=== PATIENT | female | born 1950 | race African-American/Black ===

== ENCOUNTER → 2016-12-10 | Outpatient (CLI) | payer OTHER ==
[~2016-12-10] MED LIST: ATEN25TA PO; HYDR-3307 PO; IBUP800T PO; METH750T2 PO; MORP15TA3 PO; MORP20CA17 PO
[2016-12-10 14:34] LABS: ASPARTATE AMINO TRANSFERASE 33 U/L (15-37); BLOOD UREA NITROGEN 15 mg/dL (7-18)
== END | disposition home or self-care (01) ==
LOC: STAR 13:01
PROVIDERS: ATTEND Neurological Surgery
DX: Z01.818 Encounter for other preprocedural examination (principal); R94.31 Abnormal electrocardiogram [ECG] [EKG]; M50.00 Cervical disc disorder with myelopathy, unspecified cervical region
CPT/HCPCS: 36415; 71020; 80053; 85025; 85610; 85730; 93005

== ENCOUNTER 2016-12-24 08:14 | Inpatient (IN) | payer OTHER ==
[~2016-12-24] VITALS: Ht 170.2 cm; Wt 106.0 kg
[~2016-12-24 08:14] MED LIST changes: +BACITRACIN 50,000 UNIT ONE; +BUPIVACAINE/PF 0.5% ONE; +EPINEPHRINE 1 MG/ML, 1ML ONE; +THROMBIN 20,000 UNIT VIAL TP ONE
[2016-12-24] MEDS ORDERED: LACTATED RINGERS 1,000 ML IV SCH (09:08)
[2016-12-24] MEDS ORDERED: FENTANYL PF 250 MCG/5ML ONE (09:18)
[2016-12-24] MEDS ORDERED: KETAMINE 10 MG/ML, 20ML ONE (09:18)
[2016-12-24] MEDS ORDERED: MIDAZOLAM 1 MG/ML, 2ML ONE (09:19)
[2016-12-24] MEDS ORDERED: REMIFENTANIL 2 MG ONE (09:19)
[2016-12-24] MEDS ORDERED: LIDOCAINE 1%, 2ML SQ PRN (09:30)
[2016-12-24] MEDS ORDERED: DEXAMETHASONE 4 MG/ML, 1ML ONE (10:21)
[2016-12-24] MEDS ORDERED: PROPOFOL 10 MG/ML, 50ML ONE (10:21)
[2016-12-24] MEDS ORDERED: SUCCINYLCHOLINE 20 MG/ML, 10ML ONE (10:21)
[2016-12-24] MEDS ORDERED: LABETALOL 5MG/ML, 20ML ONE (10:21)
[2016-12-24] MEDS ORDERED: CEFAZOLIN 1,000 MG ONE (10:21)
[2016-12-24] MEDS ORDERED: ONDANSETRON 2MG/ML, 2ML ONE (10:21)
[2016-12-24] MEDS ORDERED: ROCURONIUM 10 MG/ML ONE (10:21)
[2016-12-24] MEDS ORDERED: PROPOFOL 10 MG/ML, 20ML ONE (10:21)
[2016-12-24] MEDS ORDERED: OXYcodone 5 MG/5 ML ORAL.SOL UDC PO PRN (11:30)
[2016-12-24] MEDS ORDERED: PROMETHAZINE 25 MG/ML, 1ML IV PRN (11:30)
[2016-12-24] MEDS ORDERED: ACETAMINOPHEN 325 MG TABLET PO PRN (11:30)
[2016-12-24] MEDS ORDERED: FENTANYL PF 100 MCG/2ML IV PRN (11:30)
[2016-12-24] MEDS ORDERED: LABETALOL 5MG/ML, 20ML IV PRN (11:30)
[2016-12-24] MEDS ORDERED: MEPERIDINE/PF 25MG/0.5ML IVPush PRN (11:30)
[2016-12-24] MEDS ORDERED: hydrALAzine 20 MG/ML, 1ML IV PRN (11:30)
[2016-12-24] MEDS ORDERED: NITROGLYCERIN 0.4 MG BOTTLE (25 TABS) SL ONE (12:00)
[2016-12-24] MEDS ORDERED: ACETAMINOPHEN 650 MG/20.3 ML UDC ONE (13:17)
[2016-12-24] MEDS ORDERED: HYDROmorphone 1 MG/ML, 1ML ONE (13:17)
[2016-12-24] MEDS ORDERED: OXYcodone 5 MG/5 ML ORAL.SOL UDC ONE (13:17)
[2016-12-24] MEDS: HYDROmorphone 1 MG/ML, 1ML IV PRN ×2 (13:21→13:43)
[2016-12-24] MEDS ORDERED: BISACODYL 10 MG SUPP PR PRN (15:00)
[2016-12-24] MEDS ORDERED: DIAZEPAM 5 MG/ML, 2ML IV PRN (15:00)
[2016-12-24] MEDS ORDERED: ONDANSETRON 2MG/ML, 2ML IV PRN (15:00)
[2016-12-24] MEDS ORDERED: MAGNESIUM HYDROXIDE 8%, 30ML UDC PO PRN (15:00)
[2016-12-24] MEDS ORDERED: DIPHENHYDRAMINE 50 MG CAPSULE PO PRN (15:00)
[2016-12-24] MEDS ORDERED: DIPHENHYDRAMINE 50 MG/ML, 1ML IVPush PRN (15:00)
[2016-12-24] MEDS ORDERED: DIAZEPAM 5 MG TABLET PO PRN (15:00)
[2016-12-24] MEDS ORDERED: OXYcodone IR 5MG TABLET PO PRN (15:00)
[2016-12-24] MEDS ORDERED: METHOCARBAMOL 1,000 MG in DEXTROSE 5% 100 ML IV ONE (15:00)
[2016-12-24] MEDS ORDERED: HYDROcodone/APAP 5/325 TABLET PO PRN (15:00)
[2016-12-24] MEDS ORDERED: DIPHENHYDRAMINE 50 MG/ML, 1ML IM PRN (15:00)
[2016-12-24] MEDS ORDERED: PROMETHAZINE 25 MG/ML, 1ML IM PRN (15:00)
[2016-12-24] MEDS: morphine SULFATE 10 MG/ML, 1ML IV PRN ×3 (15:11→21:01)
[2016-12-24] MEDS: NS + 20MEQ KCL 1,000 ML IV SCH (15:11)
[2016-12-24 15:15] VITALS: BP 142/75
[2016-12-24] MEDS: DEXAMETHASONE 4 MG/ML, 1ML IV SCH ×2 (15:29→21:00)
[2016-12-24] MEDS: NITROGLYCERIN 0.4 MG BOTTLE (25 TABS) SL PRN ×2 (18:15→18:22)
[2016-12-24 18:43] LABS: ASPARTATE AMINO TRANSFERASE 34 U/L (15-37); BLOOD UREA NITROGEN 10 mg/dL (7-18)
[2016-12-24] MEDS: CEFAZOLIN PMX 2GM/50ML 50 ML IVPB SCH (18:47)
[2016-12-24 18:52] LABS: IS PT STATUS REG ER OR PRE ER? NO
[2016-12-24 20:56] VITALS: BP 162/84
[2016-12-24] MEDS: ATENOLOL 25 MG TABLET PO SCH (21:00)
[2016-12-24] MEDS ORDERED: ZOLPIDEM 5MG TABLET PO PRN (21:00)
[2016-12-25 00:49] LABS: IS PT STATUS REG ER OR PRE ER? NO
[2016-12-25] MEDS: DEXAMETHASONE 4 MG/ML, 1ML IV SCH ×2 (01:03→04:38)
[2016-12-25] MEDS: METHOCARBAMOL 750 MG in DEXTROSE 5% 100 ML IV SCH ×3 (01:03→18:24)
[2016-12-25] MEDS: HYDROcodone/APAP 10/325 MG TABLET PO PRN ×3 (01:08→12:51)
[2016-12-25 01:15] VITALS: BP 127/81
[2016-12-25] MEDS: CEFAZOLIN PMX 2GM/50ML 50 ML IVPB SCH ×2 (02:40→11:28)
[2016-12-25 06:40] LABS: ASPARTATE AMINO TRANSFERASE 27 U/L (15-37); BLOOD UREA NITROGEN 10 mg/dL (7-18)
[2016-12-25 06:41] LABS: IS PT STATUS REG ER OR PRE ER? NO
[2016-12-25] MEDS: NS + 20MEQ KCL 1,000 ML IV SCH (08:15)
[2016-12-25] MEDS: SENNA/DOCUSATE TABLET PO SCH (08:15)
[2016-12-25 08:51] VITALS: BP 133/82
[2016-12-25 14:55] VITALS: BP 103/67
[2016-12-25 17:58] VITALS: BP 125/76
[2016-12-25] MEDS: OXYcodone/APAP 5/325MG TABLET PO PRN (17:58)
[2016-12-25 20:27] VITALS: BP 123/69
[2016-12-25] MEDS: ATENOLOL 25 MG TABLET PO SCH (20:47)
[2016-12-26] MEDS: METHOCARBAMOL 750 MG in DEXTROSE 5% 100 ML IV SCH ×3 (01:25→16:04)
[2016-12-26] MEDS: NS + 20MEQ KCL 1,000 ML IV SCH ×2 (01:25→21:17)
[2016-12-26 01:36] VITALS: BP 119/73
[2016-12-26] MEDS: OXYcodone/APAP 5/325MG TABLET PO PRN ×2 (01:40→11:36)
[2016-12-26] MEDS: ASPIRIN 81 MG TABLET EC PO SCH (06:00)
[2016-12-26] MEDS ORDERED: OMEPRAZOLE 20 MG CAPSULE.DR PO SCH (07:30)
[2016-12-26] MEDS: SENNA/DOCUSATE TABLET PO SCH (08:16)
[2016-12-26 09:19] VITALS: BP 123/71
[2016-12-26] MEDS: ENOXAPARIN 30 MG/0.3 ML SQ SCH ×2 (09:41→22:57)
[2016-12-26] MEDS ORDERED: CYCLOBENZAPRINE 10 MG TABLET PO PRN (10:00)
[2016-12-26] MEDS ORDERED: methylPREDNISolone*ACETATE* 80 MG/ML IM ONE (13:00)
[2016-12-26] MEDS ORDERED: MORPHINE SULFATE 4 MG/ML, 1ML ONE (15:52)
[2016-12-26] MEDS: morphine SULFATE 10 MG/ML, 1ML IV PRN ×2 (15:56→21:17)
[2016-12-26 17:50] VITALS: BP 174/101
[2016-12-26 17:55] VITALS: BP 172/90
[2016-12-26] MEDS ORDERED: ACETAMINOPHEN 650 MG SUPP PR PRN (18:30)
[2016-12-26] MEDS: hydrALAzine 20 MG/ML, 1ML IV PRN ×2 (18:33→21:18)
[2016-12-26] MEDS: DEXAMETHASONE 4 MG/ML, 1ML IVPush SCH (18:33)
[2016-12-26 19:42] VITALS: BP 172/85
[2016-12-26] MEDS: ATENOLOL 25 MG TABLET PO SCH (21:00)
[2016-12-26] MEDS ORDERED: METHOCARBAMOL 750 MG TABLET PO SCH (23:00)
[2016-12-27] MEDS ORDERED: METHOCARBAMOL 750 MG in DEXTROSE 5% 100 ML IV SCH
[2016-12-27 00:01] VITALS: BP 158/88
[2016-12-27] MEDS: HYDROmorphone 1 MG/ML, 1ML IV PRN ×4 (00:35→14:36)
[2016-12-27] MEDS: DEXAMETHASONE 4 MG/ML, 1ML IVPush SCH ×5 (01:27→22:57)
[2016-12-27 04:15] VITALS: BP 149/81
[2016-12-27] MEDS: ASPIRIN 81 MG TABLET EC PO SCH (05:15)
[2016-12-27 06:34] VITALS: BP 148/81
[2016-12-27] MEDS: PANTOPRAZOLE 40 MG IV IVPush SCH (09:20)
[2016-12-27] MEDS: ENOXAPARIN 30 MG/0.3 ML SQ SCH ×2 (09:21→22:47)
[2016-12-27] MEDS: SENNA/DOCUSATE TABLET PO SCH (09:21)
[2016-12-27 09:25] LABS: ASPARTATE AMINO TRANSFERASE 20 U/L (15-37); BLOOD UREA NITROGEN 10 mg/dL (7-18)
[2016-12-27 13:29] VITALS: BP 137/87
[2016-12-27] MEDS: HYDROcodone/APAP 10/325 MG TABLET PO PRN (15:22)
[2016-12-27] MEDS: NS + 20MEQ KCL 1,000 ML IV SCH ×2 (20:00→22:47)
[2016-12-27 20:04] VITALS: BP 150/85
[2016-12-27] MEDS: ATENOLOL 25 MG TABLET PO SCH (21:00)
[2016-12-27] MEDS: morphine SULFATE 10 MG/ML, 1ML IV PRN (21:49)
[2016-12-27 22:51] VITALS: BP 129/81
[2016-12-28 00:48] VITALS: BP 113/73
[2016-12-28 06:00] LABS: BLOOD UREA NITROGEN 15 mg/dL (7-18)
[2016-12-28] MEDS: ASPIRIN 81 MG TABLET EC PO SCH (06:00)
[2016-12-28 06:04] LABS: ASPARTATE AMINO TRANSFERASE 15 U/L (15-37)
[2016-12-28] MEDS: DEXAMETHASONE 4 MG/ML, 1ML IVPush SCH ×3 (06:33→18:36)
[2016-12-28 07:08] VITALS: BP 156/81
[2016-12-28] MEDS: morphine SULFATE 10 MG/ML, 1ML IV PRN ×3 (08:00→18:32)
[2016-12-28] MEDS: SENNA/DOCUSATE TABLET PO SCH (09:00)
[2016-12-28] MEDS: PANTOPRAZOLE 40 MG IV IVPush SCH (10:19)
[2016-12-28] MEDS: ENOXAPARIN 30 MG/0.3 ML SQ SCH ×2 (10:21→21:00)
[2016-12-28] MEDS: BISACODYL 10 MG SUPP PR SCH ×3 (10:21→21:00)
[2016-12-28] MEDS: NS + 20MEQ KCL 1,000 ML IV SCH (11:26)
[2016-12-28 15:21] VITALS: BP 124/86
[2016-12-28] MEDS: HYDROcodone/APAP 10/325 MG TABLET PO PRN (15:53)
[2016-12-28] MEDS ORDERED: BISACODYL 10 MG SUPP PR PRN (19:30)
[2016-12-28] MEDS ORDERED: ACETAMINOPHEN 650 MG SUPP PR PRN (19:30)
[2016-12-28 20:06] VITALS: BP 126/61
[2016-12-28] MEDS: ATENOLOL 25 MG TABLET PO SCH (21:00)
[2016-12-29] MEDS: NS + 20MEQ KCL 1,000 ML IV SCH ×2 (00:54→11:05)
[2016-12-29] MEDS: HYDROcodone/APAP 10/325 MG TABLET PO PRN ×4 (00:56→13:27)
[2016-12-29] MEDS: DEXAMETHASONE 4 MG/ML, 1ML IVPush SCH ×3 (01:00→12:17)
[2016-12-29 02:03] VITALS: BP 150/72
[2016-12-29] MEDS: BISACODYL 10 MG SUPP PR SCH ×2 (02:35→09:22)
[2016-12-29] MEDS: ASPIRIN 81 MG TABLET EC PO SCH (04:49)
[2016-12-29 08:15] VITALS: BP 137/77
[2016-12-29] MEDS ORDERED: SENNA/DOCUSATE TABLET PO SCH (09:00)
[2016-12-29] MEDS: PANTOPRAZOLE 40 MG IV IVPush SCH (09:22)
[2016-12-29] MEDS: ENOXAPARIN 30 MG/0.3 ML SQ SCH (10:04)
[2016-12-29] MEDS ORDERED: HYDR-3307 PO (11:34)
[2016-12-29] MEDS ORDERED: METH750T87 PO (11:36)
[2016-12-29] MEDS ORDERED: MORP-52 PO (11:38)
[2016-12-29 12:22] VITALS: BP 149/88
[2016-12-29] MEDS ORDERED: METH4TAB2 PO (14:10)
[2016-12-29] MEDS ORDERED: SENN1TAB5 PO (14:12)
[2016-12-30 17:07] LABS: FACTOR II DNA ANALYSIS Negative (.)
[2017-01-01 17:06] LABS: APTT 22.5 sec (.); PROTHROMBIN TIME 10.9 sec (.)
== END 2016-12-29 14:30 | disposition home health service (06) | DRG 471 ==
LOC: ORIP 08:14 → 4NOR 14:20 → 5SO 20:24 → 4NOR 12-27 19:48 → DCLOUNGE 12-29 14:08
PROVIDERS: ADMIT Neurological Surgery; ATTEND Neurological Surgery
PROC: 0RG20A0 Fusion of 2 or more Cervical Vertebral Joints with Interbody Fusion Device, Anterior Approach, Anterior Column, Open Approach (ICD-10-PCS; 2016-12-24)
PROC: 4A11X4G Monitoring of Peripheral Nervous Electrical Activity, Intraoperative, External Approach (ICD-10-PCS; 2016-12-24)
PROC: 0RB30ZZ Excision of Cervical Vertebral Disc, Open Approach (ICD-10-PCS; principal; 2016-12-24 10:30)
DX: M48.02 Spinal stenosis, cervical region (principal); E43 Unspecified severe protein-calorie malnutrition; M50.021 Cervical disc disorder at C4-C5 level with myelopathy; F11.20 Opioid dependence, uncomplicated; D68.59 Other primary thrombophilia; G95.29 Other cord compression; E78.5 Hyperlipidemia, unspecified; F32.9 Major depressive disorder, single episode, unspecified; G62.9 Polyneuropathy, unspecified; G89.29 Other chronic pain; I10 Essential (primary) hypertension; R73.9 Hyperglycemia, unspecified; M19.90 Unspecified osteoarthritis, unspecified site; M50.121 Cervical disc disorder at C4-C5 level with radiculopathy; E07.81 Sick-euthyroid syndrome; K59.00 Constipation, unspecified; R13.10 Dysphagia, unspecified; R32 Unspecified urinary incontinence; Z96.653 Presence of artificial knee joint, bilateral; Z86.711 Personal history of pulmonary embolism; Z86.718 Personal history of other venous thrombosis and embolism; Z87.891 Personal history of nicotine dependence; Z68.36 Body mass index [BMI] 36.0-36.9, adult; Z90.710 Acquired absence of both cervix and uterus; Z90.49 Acquired absence of other specified parts of digestive tract; Z82.49 Family history of ischemic heart disease and other diseases of the circulatory system; Z83.3 Family history of diabetes mellitus; Z79.899 Other long term (current) drug therapy
CPT/HCPCS: 36415; 71010; 71020; 72040; 80053; 80061; 81003; 81240; 81241; 83036; 83735; 84100; 84439; 84443; 84484; 85025; 85300; 85301; 85303; 85306; 85598; 85610; 85613; 85670; 85730; 85732; 86146; 86147; 87040; 87205; 93005; 93306; C1713; J0171; J0690; J1100; J1170; J1650; J2250; J2405; J2704; J3010; J3480; J3490; 92523-GN; C1778; C9113; J0330; J0360; J1040; J1200; J2270; J2800; J7120

== ENCOUNTER → 2017-03-18 | Outpatient (CLI) | payer OTHER ==
[~2017-03-18] MED LIST changes: -BACITRACIN 50,000 UNIT ONE; -BUPIVACAINE/PF 0.5% ONE; -EPINEPHRINE 1 MG/ML, 1ML ONE; +IBUP-1223 PO; -IBUP800T PO; +METH4TAB2 PO; +METH750T87 PO; +MORP-52 PO; +SENN-52 PO; -THROMBIN 20,000 UNIT VIAL TP ONE
== END | disposition home or self-care (01) ==
LOC: RAD 17:44
PROVIDERS: ATTEND Neurological Surgery
DX: M54.2 Cervicalgia (principal); G89.29 Other chronic pain; Z98.1 Arthrodesis status; Z98.890 Other specified postprocedural states
CPT/HCPCS: 72050

== ENCOUNTER 2017-07-18 12:04 | Emergency (ER) | payer OTHER ==
[~2017-07-18] VITALS: Ht 165.1 cm; Wt 100.9 kg
[2017-07-18 12:53] LABS: BASOPHILS # (AUTO) 0.03 x10^3/uL (0-0.1); BASOPHILS % (AUTO) 1 % (0-1); EOSINOPHILS # (AUTO) 0.05 x10^3/uL (0-0.4); EOSINOPHILS % (AUTO) 1 % (1-7); LYMPHOCYTES # (AUTO) 1.67 x10^3/uL (1-3.4); LYMPHOCYTES % (AUTO) 34 % (22-44); MD NO; MEAN CORPUSCULAR HEMOGLOBIN 29.8 pg (27.0-34.8); MEAN CORPUSCULAR HGB CONC 32.6 g/dL (32.4-35.8); MEAN CORPUSCULAR VOLUME 91.6 fL (80-100); MEAN PLATELET VOLUME 7.9 fL (7.4-10.4); MONOCYTES # (AUTO) 0.54 x10^3/uL (0.2-0.8); MONOCYTES % (AUTO) 11 % (2-9); NEUTROPHILS # (AUTO) 2.68 x10^3/uL (1.8-6.8); NEUTROPHILS % (AUTO) 54 % (42-75); PLATELET COUNT 258 x10^3/uL (130-400); RED BLOOD COUNT 4.48 x10^6/uL (3.82-5.3); RED CELL DISTRIBUTION WIDTH 14.3 % (9.6-15.2)
[2017-07-18 13:03] LABS: MICROSCOPIC INDICATED
[2017-07-18 13:06] LABS: ALANINE AMINOTRANSFERASE 28 U/L (12-78); ALBUMIN 2.5 g/dL (3.4-5.0); ANION GAP 10 mmol/L (5-15); CALCIUM 7.7 mg/dL (8.5-10.1); CHLORIDE 109 mmol/L (98-107); CREATININE 0.82 mg/dL (0.55-1.02)
[2017-07-18 13:08] LABS: ALKALINE PHOSPHATASE 126 U/L (45-117); BILIRUBIN,TOTAL 0.3 mg/dL (0.2-1.0); TOTAL PROTEIN 5.4 g/dL (6.4-8.2)
[2017-07-18 13:16] LABS: CULTURE INDICATED? YES
[2017-07-18 15:05] VITALS: BP 135/68
== END 2017-07-18 15:07 | disposition home or self-care (01) ==
LOC: ED 14:22
DX: R60.0 Localized edema (principal); E88.09 Other disorders of plasma-protein metabolism, not elsewhere classified; I10 Essential (primary) hypertension
CPT/HCPCS: 36415; 80053; 81001; 85025; 87086; 93005; 93970; 99285

== ENCOUNTER 2017-08-10 11:19 | Emergency (ER) | payer OTHER ==
[~2017-08-10] VITALS: Ht 165.1 cm; Wt 97.5 kg
[2017-08-10 11:22] VITALS: BP 153/95
[2017-08-10 12:35] LABS: ALBUMIN 2.3 g/dL (3.4-5.0); ANION GAP 7 mmol/L (5-15); CALCIUM 7.8 mg/dL (8.5-10.1); CHLORIDE 106 mmol/L (98-107); CREATININE 0.78 mg/dL (0.55-1.02)
[2017-08-10 12:46] LABS: BASOPHILS # (AUTO) 0.02 x10^3/uL (0-0.1); BASOPHILS % (AUTO) 0 % (0-1); EOSINOPHILS # (AUTO) 0.04 x10^3/uL (0-0.4); EOSINOPHILS % (AUTO) 1 % (1-7); LYMPHOCYTES # (AUTO) 1.78 x10^3/uL (1-3.4); LYMPHOCYTES % (AUTO) 36 % (22-44); MD NO; MEAN CORPUSCULAR HEMOGLOBIN 29.8 pg (27.0-34.8); MEAN CORPUSCULAR HGB CONC 32.4 g/dL (32.4-35.8); MEAN CORPUSCULAR VOLUME 91.8 fL (80-100); MEAN PLATELET VOLUME 8.2 fL (7.4-10.4); MONOCYTES # (AUTO) 0.49 x10^3/uL (0.2-0.8); MONOCYTES % (AUTO) 10 % (2-9); NEUTROPHILS # (AUTO) 2.59 x10^3/uL (1.8-6.8); NEUTROPHILS % (AUTO) 53 % (42-75); PLATELET COUNT 301 x10^3/uL (130-400); RED BLOOD COUNT 4.42 x10^6/uL (3.82-5.3)
== END 2017-08-10 15:35 | disposition home or self-care (01) ==
LOC: ED 15:29
DX: M79.671 Pain in right foot (principal); R60.0 Localized edema; I10 Essential (primary) hypertension
CPT/HCPCS: 36415; 80048; 82040; 83880; 85025; 99285

== ENCOUNTER → 2017-08-11 | Outpatient (CLI) | payer OTHER | END | disposition home or self-care (01) | LOC: CVU 06:51 | PROVIDERS: ATTEND Internal Medicine Cardiovascular Disease | DX: I83.892 Varicose veins of left lower extremity with other complications (principal); L81.9 Disorder of pigmentation, unspecified; I51.7 Cardiomegaly; I10 Essential (primary) hypertension | CPT/HCPCS: 93306; 93970 ==

== ENCOUNTER → 2017-12-07 | Outpatient (CLI) | payer OTHER | END | disposition home or self-care (01) | LOC: CFH 15:18 | PROVIDERS: ATTEND Family Medicine | DX: M79.604 Pain in right leg (principal); R60.9 Edema, unspecified ==

== ENCOUNTER 2017-12-09 19:39 | Inpatient (IN) | payer OTHER ==
[~2017-12-09] VITALS: Ht 165.1 cm; Wt 91.8 kg
[2017-12-09] MEDS ORDERED: FURO40TA6 PO (20:01)
[2017-12-09 21:29] LABS: BASOPHILS # (AUTO) 0.09 x10^3/uL (0-0.1); BASOPHILS % (AUTO) 1 % (0-1); EOSINOPHILS # (AUTO) 0.06 x10^3/uL (0-0.4); EOSINOPHILS % (AUTO) 1 % (1-7); LYMPHOCYTES # (AUTO) 2.27 x10^3/uL (1-3.4); LYMPHOCYTES % (AUTO) 35 % (22-44); MD NO; MEAN CORPUSCULAR HEMOGLOBIN 31.2 pg (27.0-34.8); MEAN CORPUSCULAR HGB CONC 33.1 g/dL (32.4-35.8); MEAN CORPUSCULAR VOLUME 94.3 fL (80-100); MEAN PLATELET VOLUME 7.6 fL (7.4-10.4); MONOCYTES # (AUTO) 0.84 x10^3/uL (0.2-0.8); MONOCYTES % (AUTO) 13 % (2-9); NEUTROPHILS # (AUTO) 3.28 x10^3/uL (1.8-6.8); NEUTROPHILS % (AUTO) 50 % (42-75); PLATELET COUNT 292 x10^3/uL (130-400); RED BLOOD COUNT 4.24 x10^6/uL (3.82-5.3); RED CELL DISTRIBUTION WIDTH 13.9 % (9.6-15.2)
[2017-12-09 21:37] LABS: INTERNATIONAL NORMALIZED RATIO 1.15 (0.93-1.1); PROTHROMBIN TIME 11.8 Seconds (9.6-11.5)
[2017-12-09 21:38] LABS: ALANINE AMINOTRANSFERASE 41 U/L (12-78); ALBUMIN 1.8 g/dL (3.4-5.0); ANION GAP 3 mmol/L (5-15); CALCIUM 7.9 mg/dL (8.5-10.1); CHLORIDE 106 mmol/L (98-107); CREATININE 0.84 mg/dL (0.55-1.02)
[2017-12-09 21:42] LABS: ALKALINE PHOSPHATASE 148 U/L (45-117); BILIRUBIN,TOTAL 0.3 mg/dL (0.2-1.0); TOTAL PROTEIN 4.8 g/dL (6.4-8.2); TROPONIN I < 0.015 ng/mL (0.000-0.045)
[2017-12-09] MEDS ORDERED: HYDROmorphone 2 MG/ML, 1ML ONE (21:59)
[2017-12-09] MEDS: HYDROmorphone 1 MG/ML, 1ML IVPush PRN ×2 (22:05→22:53)
[2017-12-09] MEDS ORDERED: METHOCARBAMOL 750 MG TABLET PO PRN (22:30)
[2017-12-09] MEDS ORDERED: HYDROcodone/APAP 10/325 MG TABLET PO PRN (22:30)
[2017-12-09] MEDS ORDERED: DOCUSATE 100 MG CAPSULE PO PRN (23:00)
[2017-12-09] MEDS ORDERED: LABETALOL 5MG/ML, 20ML IVPush PRN (23:00)
[2017-12-09] MEDS ORDERED: ONDANSETRON ODT 4 MG PO PRN (23:00)
[2017-12-09] MEDS ORDERED: BISACODYL 10 MG SUPP PR PRN (23:00)
[2017-12-09] MEDS ORDERED: TEMAZEPAM 15 MG CAPSULE PO PRN (23:00)
[2017-12-09] MEDS ORDERED: ONDANSETRON 2MG/ML, 2ML IVPush PRN (23:00)
[2017-12-09] MEDS: HEPARIN 5,000 UNITS/ML, 1ML SQ SCH (23:46)
[2017-12-10 00:06] VITALS: BP 124/75
[2017-12-10] MEDS ORDERED: IBUP-1223 PO (01:42)
[2017-12-10] MEDS ORDERED: PREG150C PO (01:42)
[2017-12-10] MEDS ORDERED: OXYC-432 PO (01:42)
[2017-12-10 02:31] VITALS: BP 126/81
[2017-12-10] MEDS: morphine SULFATE 10 MG/ML, 1ML IVPush PRN (03:29)
[2017-12-10 05:35] LABS: BASOPHILS # (AUTO) 0.07 x10^3/uL (0-0.1); BASOPHILS % (AUTO) 1 % (0-1); EOSINOPHILS # (AUTO) 0.09 x10^3/uL (0-0.4); EOSINOPHILS % (AUTO) 2 % (1-7); LYMPHOCYTES # (AUTO) 2.19 x10^3/uL (1-3.4); LYMPHOCYTES % (AUTO) 41 % (22-44); MD NO; MEAN CORPUSCULAR HEMOGLOBIN 30.3 pg (27.0-34.8); MEAN CORPUSCULAR HGB CONC 32.2 g/dL (32.4-35.8); MEAN CORPUSCULAR VOLUME 94.2 fL (80-100); MEAN PLATELET VOLUME 7.7 fL (7.4-10.4); MONOCYTES # (AUTO) 0.66 x10^3/uL (0.2-0.8); MONOCYTES % (AUTO) 12 % (2-9); NEUTROPHILS # (AUTO) 2.37 x10^3/uL (1.8-6.8); NEUTROPHILS % (AUTO) 44 % (42-75); PLATELET COUNT 244 x10^3/uL (130-400); RED BLOOD COUNT 3.84 x10^6/uL (3.82-5.3); RED CELL DISTRIBUTION WIDTH 13.9 % (9.6-15.2)
[2017-12-10 06:12] LABS: ALANINE AMINOTRANSFERASE 37 U/L (12-78); ALBUMIN 1.6 g/dL (3.4-5.0); ANION GAP 5 mmol/L (5-15); CALCIUM 7.4 mg/dL (8.5-10.1); CHLORIDE 107 mmol/L (98-107); CREATININE 0.68 mg/dL (0.55-1.02)
[2017-12-10 06:14] LABS: ALKALINE PHOSPHATASE 131 U/L (45-117); BILIRUBIN,TOTAL 0.3 mg/dL (0.2-1.0); TOTAL PROTEIN 4.2 g/dL (6.4-8.2)
[2017-12-10 07:35] VITALS: BP 120/78
[2017-12-10] MEDS: HEPARIN 5,000 UNITS/ML, 1ML SQ SCH ×3 (08:32→21:47)
[2017-12-10] MEDS: FUROSEMIDE 40 MG/4 ML IV SCH ×2 (08:32→21:47)
[2017-12-10] MEDS: SENNA/DOCUSATE TABLET PO SCH ×2 (08:33→21:47)
[2017-12-10] MEDS: PREGABALIN 150 MG CAPSULE PO SCH ×2 (08:35→20:13)
[2017-12-10] MEDS: OXYcodone/APAP 10/325MG TABLET PO SCH ×3 (11:16→20:13)
[2017-12-10] MEDS: CEFAZOLIN PMX 1GM/50ML 50 ML IV SCH ×2 (11:16→17:49)
[2017-12-10 14:35] VITALS: BP 131/82
[2017-12-10] MEDS: ALBUMIN HUMAN 25% 100 ML IV SCH (20:12)
[2017-12-10 20:38] VITALS: BP 114/75
[2017-12-10] MEDS: ATENOLOL 25 MG TABLET PO SCH (21:00)
[2017-12-11 00:29] VITALS: BP 120/77
[2017-12-11 00:49] VITALS: BP 135/79
[2017-12-11] MEDS ORDERED: NITROGLYCERIN 0.4 MG BOTTLE (25 TABS) SL PRN (01:30)
[2017-12-11 01:48] LABS: TROPONIN I < 0.015 ng/mL (0.000-0.045)
[2017-12-11] MEDS: morphine SULFATE 10 MG/ML, 1ML IVPush PRN (01:56)
[2017-12-11] MEDS: CEFAZOLIN PMX 1GM/50ML 50 ML IV SCH ×2 (02:41→10:00)
[2017-12-11] MEDS: OXYcodone/APAP 10/325MG TABLET PO SCH ×4 (06:26→21:27)
[2017-12-11 07:59] VITALS: BP 121/79
[2017-12-11] MEDS: PREGABALIN 150 MG CAPSULE PO SCH ×2 (08:32→21:27)
[2017-12-11] MEDS: ALBUMIN HUMAN 25% 100 ML IV SCH ×3 (08:32→22:03)
[2017-12-11] MEDS: SENNA/DOCUSATE TABLET PO SCH ×2 (08:33→21:26)
[2017-12-11] MEDS: HEPARIN 5,000 UNITS/ML, 1ML SQ SCH ×3 (08:33→21:27)
[2017-12-11] MEDS: FUROSEMIDE 40 MG/4 ML IV SCH ×2 (09:47→18:27)
[2017-12-11] MEDS: LINEZOLID PMX 600MG/300ML 300 ML IV SCH ×2 (12:56→23:09)
[2017-12-11 14:00] VITALS: BP 124/80
[2017-12-11] MEDS ORDERED: ALBUMIN HUMAN 25% 100 ML IV SCH (16:00)
[2017-12-11 18:58] VITALS: BP 120/76
[2017-12-11] MEDS: ATENOLOL 25 MG TABLET PO SCH (21:26)
[2017-12-12 05:47] VITALS: BP 118/76
[2017-12-12] MEDS: OXYcodone/APAP 10/325MG TABLET PO SCH ×4 (05:51→23:33)
[2017-12-12 06:19] LABS: BASOPHILS # (AUTO) 0.02 x10^3/uL (0-0.1); BASOPHILS % (AUTO) 1 % (0-1); EOSINOPHILS # (AUTO) 0.15 x10^3/uL (0-0.4); EOSINOPHILS % (AUTO) 4 % (1-7); LYMPHOCYTES # (AUTO) 1.52 x10^3/uL (1-3.4); LYMPHOCYTES % (AUTO) 37 % (22-44); MD NO; MEAN CORPUSCULAR HGB CONC 32.5 g/dL (32.4-35.8); MEAN CORPUSCULAR VOLUME 95.1 fL (80-100); MONOCYTES # (AUTO) 0.59 x10^3/uL (0.2-0.8); MONOCYTES % (AUTO) 14 % (2-9); NEUTROPHILS # (AUTO) 1.89 x10^3/uL (1.8-6.8); NEUTROPHILS % (AUTO) 45 % (42-75); PLATELET COUNT 204 x10^3/uL (130-400); RED CELL DISTRIBUTION WIDTH 14.2 % (9.6-15.2)
[2017-12-12 06:42] LABS: ANION GAP 3 mmol/L (5-15); CHLORIDE 105 mmol/L (98-107); CREATININE 0.54 mg/dL (0.55-1.02)
[2017-12-12 07:45] VITALS: BP 108/71
[2017-12-12] MEDS: SENNA/DOCUSATE TABLET PO SCH ×2 (09:06→22:10)
[2017-12-12] MEDS: PREGABALIN 150 MG CAPSULE PO SCH ×2 (09:06→22:10)
[2017-12-12] MEDS: HEPARIN 5,000 UNITS/ML, 1ML SQ SCH ×3 (09:06→23:33)
[2017-12-12] MEDS: ALBUMIN HUMAN 25% 100 ML IV SCH ×2 (09:07→21:11)
[2017-12-12] MEDS: FUROSEMIDE 40 MG/4 ML IV SCH ×2 (11:36→22:00)
[2017-12-12] MEDS: LINEZOLID PMX 600MG/300ML 300 ML IV SCH (11:36)
[2017-12-12 14:00] VITALS: BP 113/78
[2017-12-12 16:56] VITALS: BP 100/68
[2017-12-12] MEDS: ATENOLOL 25 MG TABLET PO SCH ×2 (22:10→22:13)
[2017-12-13] MEDS: LINEZOLID PMX 600MG/300ML 300 ML IV SCH ×2 (00:21→13:11)
[2017-12-13 00:22] VITALS: BP 104/67
[2017-12-13 01:52] VITALS: BP 99/65
[2017-12-13] MEDS: OXYcodone/APAP 10/325MG TABLET PO SCH ×4 (06:16→21:09)
[2017-12-13 07:11] VITALS: BP 128/81
[2017-12-13] MEDS: ALBUMIN HUMAN 25% 100 ML IV SCH ×2 (09:24→21:09)
[2017-12-13] MEDS: HEPARIN 5,000 UNITS/ML, 1ML SQ SCH ×2 (09:25→17:27)
[2017-12-13] MEDS: PREGABALIN 150 MG CAPSULE PO SCH ×3 (09:25→21:09)
[2017-12-13] MEDS: GABAPENTIN 100 MG CAPSULE PO SCH ×3 (11:27→21:09)
[2017-12-13] MEDS: SENNA/DOCUSATE TABLET PO SCH ×2 (11:27→21:09)
[2017-12-13] MEDS: FUROSEMIDE 40 MG/4 ML IV SCH ×2 (13:11→17:27)
[2017-12-13 13:52] VITALS: BP 136/86
[2017-12-13 17:25] VITALS: BP 147/82
[2017-12-13 19:07] VITALS: BP 101/68
[2017-12-13] MEDS: ATENOLOL 25 MG TABLET PO SCH (21:09)
[2017-12-14] MEDS: HEPARIN 5,000 UNITS/ML, 1ML SQ SCH ×3 (00:47→18:06)
[2017-12-14] MEDS: LINEZOLID PMX 600MG/300ML 300 ML IV SCH ×2 (00:47→13:38)
[2017-12-14 01:08] VITALS: BP 116/76
[2017-12-14] MEDS: OXYcodone/APAP 10/325MG TABLET PO SCH ×4 (06:06→22:11)
[2017-12-14] MEDS: GABAPENTIN 100 MG CAPSULE PO SCH ×4 (06:06→22:12)
[2017-12-14 06:59] VITALS: BP 104/70
[2017-12-14] MEDS: FUROSEMIDE 40 MG/4 ML IV SCH ×2 (07:22→18:09)
[2017-12-14] MEDS: SENNA/DOCUSATE TABLET PO SCH ×2 (09:39→22:12)
[2017-12-14] MEDS: ALBUMIN HUMAN 25% 100 ML IV SCH ×2 (09:39→21:09)
[2017-12-14] MEDS: PREGABALIN 150 MG CAPSULE PO SCH ×3 (09:39→22:15)
[2017-12-14 12:36] VITALS: BP 137/82
[2017-12-14] MEDS ORDERED: GABA-826 PO (13:54)
[2017-12-14] MEDS ORDERED: LINE600T37 PO (13:56)
[2017-12-14 19:13] VITALS: BP 102/68
[2017-12-14] MEDS: ATENOLOL 25 MG TABLET PO SCH (22:11)
[2017-12-15] MEDS: LINEZOLID PMX 600MG/300ML 300 ML IV SCH ×2 (01:10→13:35)
[2017-12-15] MEDS: HEPARIN 5,000 UNITS/ML, 1ML SQ SCH ×2 (01:11→09:40)
[2017-12-15 01:20] VITALS: BP 162/86
[2017-12-15] MEDS: GABAPENTIN 100 MG CAPSULE PO SCH ×2 (05:59→13:35)
[2017-12-15] MEDS: OXYcodone/APAP 10/325MG TABLET PO SCH ×2 (05:59→13:35)
[2017-12-15] MEDS: FUROSEMIDE 40 MG/4 ML IV SCH ×2 (07:30→16:31)
[2017-12-15 08:20] VITALS: BP 109/74
[2017-12-15] MEDS: ALBUMIN HUMAN 25% 100 ML IV SCH (09:39)
[2017-12-15] MEDS: SENNA/DOCUSATE TABLET PO SCH (09:40)
[2017-12-15] MEDS: PREGABALIN 150 MG CAPSULE PO SCH (09:40)
[2017-12-15 16:10] VITALS: BP 90/59
[2017-12-15] MEDS ORDERED: LINEZOLID 600 MG TABLET PO SCH (23:00)
== END 2017-12-15 17:36 | DRG 299 ==
LOC: ED 22:12 → EDIP 22:47 → 3NE 23:02
PROVIDERS: ADMIT Internal Medicine; ATTEND Internal Medicine
PROC: 02HV33Z Insertion of Infusion Device into Superior Vena Cava, Percutaneous Approach (ICD-10-PCS; principal; 2017-12-10)
PROC: B518ZZA Fluoroscopy of Superior Vena Cava, Guidance (ICD-10-PCS; 2017-12-10)
PROC: B548ZZA Ultrasonography of Superior Vena Cava, Guidance (ICD-10-PCS; 2017-12-10)
DX: I87.2 Venous insufficiency (chronic) (peripheral) (principal); E43 Unspecified severe protein-calorie malnutrition; L03.115 Cellulitis of right lower limb; L03.116 Cellulitis of left lower limb; Z86.711 Personal history of pulmonary embolism; Z86.718 Personal history of other venous thrombosis and embolism; G89.4 Chronic pain syndrome; I10 Essential (primary) hypertension; G62.9 Polyneuropathy, unspecified; R26.2 Difficulty in walking, not elsewhere classified; Z68.33 Body mass index [BMI] 33.0-33.9, adult; M19.90 Unspecified osteoarthritis, unspecified site
CPT/HCPCS: 36415; 36569; 71045; 76937; 77001; 80048; 80053; 83880; 84484; 85025; 85610; 85730; 87070; 87077; 87186; 87205; 93005; 93922; 96374; J0690; J1170; J1644; J1940; J2020; P9047; Q0162; C1751; J2270

== ENCOUNTER → 2018-01-25 | Outpatient (CLI) | payer OTHER ==
[~2018-01-25] MED LIST changes: +FURO40TA6 PO; +GABA-826 PO; +LINE600T37 PO; +OMNIPAQUE 350 MG/ML, 100ML BOTTLE ONE; +OXYC-432 PO; +PREG150C PO
[2018-01-25 16:54] LABS: CREATININE 0.82 mg/dL (0.55-1.02)
== END | disposition home or self-care (01) ==
LOC: RAD 12:34
PROVIDERS: ATTEND Nurse Practitioner Family
DX: I26.99 Other pulmonary embolism without acute cor pulmonale (principal); I10 Essential (primary) hypertension
CPT/HCPCS: 36415; 71045; 71275; 78582; 82565; A9540; A9558; Q9967

== ENCOUNTER → 2018-03-16 | Outpatient (CLI) | payer OTHER ==
[~2018-03-16] MED LIST changes: -OMNIPAQUE 350 MG/ML, 100ML BOTTLE ONE
== END | disposition home or self-care (01) ==
LOC: CFH 13:31
PROVIDERS: ATTEND Family Medicine
DX: N63.20 Unspecified lump in the left breast, unspecified quadrant (principal)
CPT/HCPCS: 77066

== ENCOUNTER → 2018-03-19 | Outpatient (CLI) | payer OTHER ==
[~2018-03-19] MED LIST changes: +LIDOCAINE 1%, 20ML ONE; +LIDOCAINE 1%-EPI 1:100K, 20ML ONE; +SODIUM BICARBONATE 4.0%, 5ML ONE
== END | disposition home or self-care (01) ==
LOC: CFH 08:03
PROVIDERS: ATTEND Family Medicine
DX: N63.20 Unspecified lump in the left breast, unspecified quadrant (principal)
CPT/HCPCS: 19083; 77065; 88305; J3490

== ENCOUNTER → 2018-04-28 | Outpatient (CLI) | payer OTHER ==
[~2018-04-28] MED LIST changes: +GADOBUTROL 10 MMOL/10 ML VIAL ONE; -LIDOCAINE 1%, 20ML ONE; -LIDOCAINE 1%-EPI 1:100K, 20ML ONE; -SODIUM BICARBONATE 4.0%, 5ML ONE
== END | disposition home or self-care (01) ==
LOC: CFH 12:13
PROVIDERS: ATTEND Family Medicine
DX: N63.20 Unspecified lump in the left breast, unspecified quadrant (principal)
CPT/HCPCS: A9585; C8908

== ENCOUNTER → 2018-08-23 | Outpatient (CLI) | payer MEDICARE, MEDICAID ==
[~2018-08-23] MED LIST changes: +APIX5TAB PO; +GABA300C10 PO; -GADOBUTROL 10 MMOL/10 ML VIAL ONE; +OMEP-110 PO
== END | disposition home or self-care (01) ==
LOC: CARD 12:52
PROVIDERS: ATTEND Internal Medicine
DX: R06.02 Shortness of breath (principal)
CPT/HCPCS: 94060; 94726; 94729

== ENCOUNTER → 2018-09-15 | Outpatient (CLI) | payer MEDICARE, MEDICAID | END | disposition home or self-care (01) | LOC: RAD 11:18 | PROVIDERS: ATTEND Internal Medicine Gastroenterology | DX: R13.19 Other dysphagia (principal); I26.99 Other pulmonary embolism without acute cor pulmonale | CPT/HCPCS: 74230 ==

== ENCOUNTER 2018-10-12 11:45 | Observation (INO) | payer MEDICARE, MEDICAID ==
[~2018-10-12] VITALS: Ht 165.1 cm; Wt 72.9 kg
--- NOTE | 2018-10-12 12:19 | NUR ---
PT ARRIVES TO ED WITH C/O CHEST AND LEG PAIN. PT REPORTS SHE INTIALLY THOUGHT THAT SHE HAD GERDS BUT HER GI MEDICATIONS DID NOT HELP HER PAIN. PT REPORTS ALSO NOTICING HER LEGS BEGAN TO SWELL. PT HAS +1 SWELLING PRESENT. PT DENIES TRUAMA. PT REPORTS POSSIBLE CHF HX. PT DENIES ANY OTHER RESP SYMPTOMS. PT CONNECTED TO ALL MONITORS AND CALL LIGHT IN REACH.
[2018-10-12 13:21] LABS: BASOPHILS # (AUTO) 0.01 x10^3/uL (0-0.1); BASOPHILS % (AUTO) 0 % (0-1); EOSINOPHILS # (AUTO) 0.03 x10^3/uL (0-0.4); EOSINOPHILS % (AUTO) 1 % (1-7); LYMPHOCYTES # (AUTO) 1.97 x10^3/uL (1-3.4); LYMPHOCYTES % (AUTO) 39 % (22-44); MD NO; MEAN CORPUSCULAR HEMOGLOBIN 30.4 pg (27.0-34.8); MEAN CORPUSCULAR HGB CONC 32.4 g/dL (32.4-35.8); MEAN CORPUSCULAR VOLUME 93.7 fL (80-100); MEAN PLATELET VOLUME 7.9 fL (7.4-10.4); MONOCYTES # (AUTO) 0.54 x10^3/uL (0.2-0.8); MONOCYTES % (AUTO) 11 % (2-9); NEUTROPHILS # (AUTO) 2.55 x10^3/uL (1.8-6.8); NEUTROPHILS % (AUTO) 50 % (42-75); PLATELET COUNT 254 x10^3/uL (130-400); RED BLOOD COUNT 4.16 x10^6/uL (3.82-5.3); RED CELL DISTRIBUTION WIDTH 14.2 % (9.6-15.2)
[2018-10-12 13:27] LABS: ALBUMIN 2.2 g/dL (3.4-5.0); ANION GAP 3 mmol/L (5-15); CALCIUM 7.7 mg/dL (8.5-10.1); CHLORIDE 111 mmol/L (98-107); CREATININE 0.59 mg/dL (0.55-1.02)
[2018-10-12 13:31] LABS: TROPONIN I < 0.015 ng/mL (0.000-0.045)
--- NOTE | 2018-10-12 13:57 | NUR ---
PIV PLACED IN PT. PT RESTING IN BED.
--- NOTE | 2018-10-12 15:21 | NUR ---
report to [facility]
[2018-10-12 15:57] VITALS: BP 151/91
[2018-10-12 15:58] LABS: CULTURE INDICATED? YES; MICROSCOPIC INDICATED
[2018-10-12 16:02] VITALS: BP 151/91
[2018-10-12] MEDS ORDERED: METHOCARBAMOL 750 MG TABLET PO PRN (16:30)
[2018-10-12] MEDS ORDERED: MAALOX/HYOSCYAMINE/LIDOCAINE 45 ML BTL PO ONE (16:30)
[2018-10-12] MEDS ORDERED: ACETAMINOPHEN 325 MG TABLET PO PRN (16:30)
[2018-10-12] MEDS ORDERED: ONDANSETRON 2MG/ML, 2ML IVPush PRN (16:30)
[2018-10-12] MEDS ORDERED: KETOROLAC 30 MG/1 ML IV PRN (16:30)
[2018-10-12] MEDS ORDERED: NITROGLYCERIN 0.4 MG BOTTLE (25 TABS) SL PRN (16:30)
[2018-10-12 17:46] LABS: TROPONIN I < 0.015 ng/mL (0.000-0.045)
[2018-10-12] MEDS: FUROSEMIDE 40 MG TABLET PO SCH (19:56)
[2018-10-12] MEDS: SENNA/DOCUSATE TABLET PO SCH (19:57)
[2018-10-12] MEDS: GABAPENTIN 300 MG CAPSULE PO SCH (19:57)
[2018-10-12] MEDS: OXYcodone/APAP 10/325MG TABLET PO SCH (19:57)
[2018-10-12] MEDS: APIXABAN 5 MG TABLET PO SCH (19:57)
[2018-10-12 20:54] VITALS: BP 124/74
[2018-10-12] MEDS ORDERED: ATORVASTATIN 40 MG TABLET PO SCH (21:00)
[2018-10-12] MEDS ORDERED: ATENOLOL 25 MG TABLET PO SCH (21:00)
[2018-10-12 22:55] LABS: TROPONIN I < 0.015 ng/mL (0.000-0.045)
[2018-10-13 02:05] VITALS: BP 112/73
[2018-10-13 04:31] LABS: MEAN CORPUSCULAR HEMOGLOBIN 31.7 pg (27.0-34.8); MEAN CORPUSCULAR HGB CONC 33.8 g/dL (32.4-35.8); MEAN CORPUSCULAR VOLUME 93.7 fL (80-100); MEAN PLATELET VOLUME 7.8 fL (7.4-10.4); PLATELET COUNT 226 x10^3/uL (130-400); RED CELL DISTRIBUTION WIDTH 14.1 % (9.6-15.2)
[2018-10-13 04:41] LABS: ALBUMIN 1.8 g/dL (3.4-5.0); ANION GAP 3 mmol/L (5-15); CALCIUM 7.5 mg/dL (8.5-10.1); CHLORIDE 110 mmol/L (98-107)
[2018-10-13 04:47] LABS: ALANINE AMINOTRANSFERASE 25 U/L (12-78); ALKALINE PHOSPHATASE 149 U/L (45-117); BILIRUBIN,TOTAL 0.3 mg/dL (0.2-1.0); CREATININE 0.65 mg/dL (0.55-1.02); TOTAL PROTEIN 4.5 g/dL (6.4-8.2); TROPONIN I < 0.015 ng/mL (0.000-0.045)
[2018-10-13 04:52] LABS: BASOPHILS # (AUTO) 0.01 x10^3/uL (0-0.1); BASOPHILS % (AUTO) 0 % (0-1); EOSINOPHILS % (AUTO) 2 % (1-7); LYMPHOCYTES # (AUTO) 1.87 x10^3/uL (1-3.4); LYMPHOCYTES % (AUTO) 38 % (22-44); MD SCAN; MONOCYTES # (AUTO) 0.62 x10^3/uL (0.2-0.8); MONOCYTES % (AUTO) 13 % (2-9); NEUTROPHILS # (AUTO) 2.29 x10^3/uL (1.8-6.8); NEUTROPHILS % (AUTO) 47 % (42-75)
[2018-10-13] MEDS: OXYcodone/APAP 10/325MG TABLET PO SCH ×2 (04:56→12:00)
[2018-10-13] MEDS ORDERED: ASPIRIN 325 MG TABLET EC PO SCH (06:00)
[2018-10-13] MEDS ORDERED: ASPIRIN 81 MG TABLET EC PO SCH (06:00)
[2018-10-13 07:14] VITALS: BP 102/69
[2018-10-13] MEDS ORDERED: PANTOPRAZOLE 40 MG IV IVPush SCH (07:30)
[2018-10-13] MEDS ORDERED: REGADENOSON 0.4 MG/5 ML SYRINGE ONE (08:45)
[2018-10-13] MEDS: APIXABAN 5 MG TABLET PO SCH (10:53)
[2018-10-13] MEDS: GABAPENTIN 300 MG CAPSULE PO SCH (10:53)
[2018-10-13] MEDS: SENNA/DOCUSATE TABLET PO SCH (10:54)
[2018-10-13] MEDS: FUROSEMIDE 40 MG TABLET PO SCH (10:54)
[2018-10-13 13:25] VITALS: BP 110/65
[2018-10-13] MEDS ORDERED: POTA20TA6 PO (13:36)
[2018-10-13] MEDS ORDERED: PANT40TA5 PO (13:36)
[2018-10-14] MEDS ORDERED: PANTOPROZOLE 40MG TABLET PO SCH (06:00)
== END 2018-10-13 15:26 | disposition home health service (06) ==
LOC: ED 14:41 → INTOOBSV 14:50 → EDIP 14:50 → 5SO 15:35 → DCLOUNGE 10-13 15:07
PROVIDERS: ADMIT Internal Medicine; ATTEND Internal Medicine
DX: R07.89 Other chest pain (principal); E43 Unspecified severe protein-calorie malnutrition; G89.4 Chronic pain syndrome; I11.0 Hypertensive heart disease with heart failure; I50.9 Heart failure, unspecified; K21.9 Gastro-esophageal reflux disease without esophagitis; Z82.49 Family history of ischemic heart disease and other diseases of the circulatory system; Z86.711 Personal history of pulmonary embolism; Z86.718 Personal history of other venous thrombosis and embolism; Z96.659 Presence of unspecified artificial knee joint; Z99.81 Dependence on supplemental oxygen
CPT/HCPCS: 36415; 71045; 78452; 80048; 80053; 81001; 82040; 83880; 84484; 85025; 87077; 87086; 87186; 93005; 93017; 93970; 96374; 99284; A9502; C9113; G0378; J2785

== ENCOUNTER 2018-10-26 11:05 | Day surgery (SDC) | payer MEDICARE, MEDICAID ==
[~2018-10-26] VITALS: Ht 165.1 cm; Wt 79.5 kg
[~2018-10-26 11:05] MED LIST changes: +PANT40TA5 PO; +POTA20TA6 PO
[2018-10-26 11:43] VITALS: BP 124/86
[2018-10-26] MEDS ORDERED: LACTATED RINGERS 1,000 ML IV SCH (11:47)
[2018-10-26 11:57] VITALS: BP 124/86
[2018-10-26] MEDS ORDERED: MORPHINE SULFATE 4 MG/ML, 1ML IVPush ONE (12:00)
[2018-10-26] MEDS ORDERED: METH750T87 PO (12:11)
[2018-10-26] MEDS ORDERED: MORPHINE PO (12:11)
[2018-10-26] MEDS ORDERED: PROPOFOL 10 MG/ML, 20ML ONE (12:13)
[2018-10-26] MEDS ORDERED: FENTANYL PF 100 MCG/2ML IV PRN (13:00)
[2018-10-26] MEDS ORDERED: HALOPERIDOL 5 MG/ML IV PRN (13:00)
[2018-10-26] MEDS ORDERED: MIDAZOLAM 1 MG/ML, 2ML IV PRN (13:00)
[2018-10-26] MEDS ORDERED: LABETALOL 5MG/ML, 20ML IV PRN (13:00)
[2018-10-26] MEDS ORDERED: ALBUTEROL SULFATE 2.5 MG/3 ML NPPB PRN (13:00)
[2018-10-26] MEDS ORDERED: ONDANSETRON ODT 8 MG PO PRN (13:00)
[2018-10-26] MEDS ORDERED: HYDROmorphone 2 MG/ML, 1ML IVPush PRN (13:00)
[2018-10-26] MEDS ORDERED: PROMETHAZINE 25 MG/ML, 1ML IV PRN (13:00)
[2018-10-26] MEDS ORDERED: PROMETHAZINE 12.5 MG SUPP PR PRN (13:00)
[2018-10-26] MEDS ORDERED: DIAZEPAM 5 MG/ML, 2ML IVPush PRN (13:00)
[2018-10-26] MEDS ORDERED: ONDANSETRON 2MG/ML, 2ML IV PRN (13:00)
[2018-10-26] MEDS ORDERED: MEPERIDINE/PF 25MG/0.5ML IVPush PRN (13:00)
[2018-10-26] MEDS ORDERED: MORPHINE SULFATE 4 MG/ML, 1ML IVPush PRN (13:00)
[2018-10-26] MEDS ORDERED: EPHEDRINE 50 MG/ML, 1ML IVPush PRN (13:00)
[2018-10-26] MEDS ORDERED: OXYcodone 5 MG/5 ML ORAL.SOL UDC PO PRN (13:00)
[2018-10-26] MEDS ORDERED: hydrALAzine 20 MG/ML, 1ML IV PRN (13:00)
[2018-10-26] MEDS ORDERED: GABAPENTIN 300 MG CAPSULE PO ONE (13:30)
== END 2018-10-26 14:50 | disposition home or self-care (01) ==
LOC: OUT 11:05
PROVIDERS: ATTEND Internal Medicine Gastroenterology
DX: K57.30 Diverticulosis of large intestine without perforation or abscess without bleeding (principal); K64.0 First degree hemorrhoids; Z79.01 Long term (current) use of anticoagulants
CPT/HCPCS: 45378; J2704

== ENCOUNTER 2019-01-12 10:10 | Outpatient (CLI) | payer MEDICARE, MEDICAID | END 2019-01-12 23:59 | disposition home or self-care (01) | LOC: PETCFH 10:10 | PROVIDERS: ATTEND Family Medicine | DX: E83.51 Hypocalcemia (principal); R74.8 Abnormal levels of other serum enzymes | CPT/HCPCS: 78306; A9503 ==

== ENCOUNTER → 2019-04-21 | Outpatient (CLI) | payer MEDICARE, MEDICAID ==
[~2019-04-21] MED LIST changes: -HYDR-3307 PO; +HYDR-36 PO; +LINE600T12 PO; -LINE600T37 PO; +MORP-29 PO; -MORP15TA3 PO; +MORPHINE PO
== END | disposition home or self-care (01) ==
LOC: CVU 07:03
PROVIDERS: ATTEND Internal Medicine Cardiovascular Disease
DX: I08.3 Combined rheumatic disorders of mitral, aortic and tricuspid valves (principal); I10 Essential (primary) hypertension
CPT/HCPCS: 93306

== ENCOUNTER → 2020-09-25 | Outpatient (CLI) | payer MEDICARE, MEDICAID ==
[~2020-09-25] MED LIST changes: +HYDR-3248 PO; -HYDR-36 PO; +METH-640 PO; -METH750T2 PO; -OXYC-432 PO; +OXYC1TAB18 PO; -PANT40TA5 PO; +PANT40TA6 PO
== END | disposition home or self-care (01) ==
LOC: RAD 09:16
PROVIDERS: ATTEND Neurological Surgery
DX: M51.36 Other intervertebral disc degeneration, lumbar region (principal)
CPT/HCPCS: 72110

== ENCOUNTER 2020-10-04 09:11 | Outpatient (CLI) | payer MEDICARE, MEDICAID ==
[2020-10-04] MEDS ORDERED: FENTANYL PF 100 MCG/2ML ONE ×2 (10:18)
[2020-10-04] MEDS ORDERED: NALOXONE 1 MG/ML, 2ML ONE (10:19)
[2020-10-04] MEDS ORDERED: MIDAZOLAM 1 MG/ML, 5ML ONE (10:19)
[2020-10-04] MEDS ORDERED: FLUMAZENIL 0.1 MG/1 ML, 5ML ONE (10:19)
== END 2020-10-04 23:59 | disposition home or self-care (01) ==
LOC: RAD 09:11
PROVIDERS: ATTEND Neurological Surgery
DX: M54.5 Low back pain (principal); M48.061 Spinal stenosis, lumbar region without neurogenic claudication; M48.05 Spinal stenosis, thoracolumbar region; M43.15 Spondylolisthesis, thoracolumbar region; J45.909 Unspecified asthma, uncomplicated; Z99.81 Dependence on supplemental oxygen
CPT/HCPCS: 72148; 99156; 99157; J2250; J3010; J2310

== ENCOUNTER → 2020-11-23 | Outpatient (CLI) | payer MEDICARE, MEDICAID ==
[~2020-11-23] MED LIST changes: +REGADENOSON 0.4 MG/5 ML SYRINGE ONE
== END | disposition home or self-care (01) ==
LOC: CFH 12:22
PROVIDERS: ATTEND Internal Medicine Cardiovascular Disease
DX: R07.9 Chest pain, unspecified (principal); I10 Essential (primary) hypertension
CPT/HCPCS: 78452; 93017; A9502; J2785

== ENCOUNTER 2021-03-21 06:42 | Day surgery (SDC) | payer MEDICARE, MEDICAID | END 2021-03-21 09:37 | disposition home or self-care (01) | LOC: OUT 06:42 → EDSTATUS 07:30 → OUT 09:37 | PROVIDERS: ATTEND Neurological Surgery | DX: M54.2 Cervicalgia (principal); M48.02 Spinal stenosis, cervical region; G47.30 Sleep apnea, unspecified; Z79.01 Long term (current) use of anticoagulants; Z79.899 Other long term (current) drug therapy; Z98.1 Arthrodesis status | CPT/HCPCS: 72141; 99156; 99157; J2250; J3010 ==